=== PATIENT | male | born 1975 | race Two or more races ===

== ENCOUNTER 2019-03-20 23:49 | Emergency (ER) | payer SELFPAY ==
[~2019-03-20] VITALS: Ht 175.3 cm; Wt 127.0 kg
[2019-03-21 00:04] VITALS: BP 140/87
== END 2019-03-21 00:10 ==
LOC: ER 23:49
DX: I10 Essential (primary) hypertension (principal); F17.210 Nicotine dependence, cigarettes, uncomplicated; Z02.89 Encounter for other administrative examinations

== ENCOUNTER 2020-12-29 22:26 | Emergency (ER) | payer SELFPAY ==
[~2020-12-29] VITALS: Ht 180.3 cm; Wt 113.4 kg
[2020-12-30] MEDS ORDERED: SODIUM CHLORIDE 0.9% 1,000 ML IV ONE
[2020-12-30] MEDS ORDERED: LORazepam 2MG/ML-1ML VIAL IV ONE ×2
[2020-12-30] MEDS ORDERED: SODIUM CHLORIDE 0.9% 2,000 ML IV ONE (00:45)
[2020-12-30 01:10] VITALS: BP 138/92
== END 2020-12-30 02:11 | disposition home or self-care (01) ==
LOC: ER 22:26
DX: S02.2XXA Fracture of nasal bones, initial encounter for closed fracture (principal); E86.0 Dehydration; F17.210 Nicotine dependence, cigarettes, uncomplicated; I10 Essential (primary) hypertension; X58.XXXA Exposure to other specified factors, initial encounter; Y93.89 Activity, other specified; Y92.89 Other specified places as the place of occurrence of the external cause; Y99.8 Other external cause status
CPT/HCPCS: 36415; 70450; 70486; 82550; 96361; 96374; 99285; J2060

== ENCOUNTER 2024-07-21 09:15 | Inpatient (IN) | payer OTHER, MEDICARE, MEDICAID ==
[~2024-07-21] VITALS: Ht 180.3 cm; Wt 104.5 kg
--- NOTE | 2024-07-21 09:27 | ED.PDOC ---
History of present illness HPI Comments 49 y/o M, MANDY, with PMHx of HTN, DM, and depression presents to the ED for CC of hyperglycemia. EMS reports, patient is coming from home where he complains of hyperglycemic blood sugar reading, yesterday (07/20/24). Patient states, that he was seen at the [facility] where he was told his blood sugar read at 500 on glucometer; no medications were given. In route to ED, patient's blood sugar read at 456 on glucometer. Patient denies dysuria, dizziness, urinary frequency, back pain, or disorientation. No other symptoms or modifying factors present at this time. Time Seen by MD: 09:15 Primary Care Provider: KENIA History of present illness: Nurses Notes, Dispatcher Service Chief Notes, Medications, Allergies Allergies: Coded Allergies: Olanzapine (Verified Allergy, Unknown, 07/21/24) Information Source: Patient, Emergency Med Personnel Mode of Arrival: EMS Timing: Hours Duration: Since onset Prehospital treatment: None [place]: None History of: Diabetes Associated signs and symptoms: None Past Medical History PAST MEDICAL HISTORY: Depression, DM, HTN Surgical History: Denies all surgeries Family History Family History: Unknown Social History Smoker: Greater Than 1 Pack/Day Alcohol: Denies ETOH Use Drugs: Denies Drug Use Lives In: Home Constitutional: denies: chills, diaphoresis, fatigue, fever, malaise, sweats, weakness, others EENTM: denies: blurred vision, double vision, ear bleeding, ear discharge, ear drainage, ear pain, ear ringing, eye pain, eye redness, hearing loss, mouth pain, mouth swelling, nasal discharge, nose bleeding, nose congestion, nose pain, photophobia, tearing, throat pain, throat swelling, voice changes, others Respiratory: denies: cough, hemoptysis, orthopnea, SOB at rest, shortness of breath, SOB with excertion, stridor, wheezing, others Cardiovascular: denies: chest pain, dizzy spells, diaphoresis, Dyspnea on exertion, edema, irregular heart beat, left arm pain, lightheadedness, palpitations, PND, syncope, others Gastrointestinal: denies: abdomen distended, abdominal pain, blood streaked bowels, constipated, diarrhea, dysphagia, difficulty swallowing, hematemesis, melena, nausea, poor appetite, poor fluid intake, rectal bleeding, rectal pain, vomiting, others Genitourinary: denies: burning, dysuria, flank pain, frequency, hematuria, incontinence, penile discharge, penile sore, pain, testicle pain, testicle swelling, urgency, others Neurological: denies: dizziness, fainting, headache, left sided numbness, left sided weakness, numbness, paresthesia, pre-existing deficit, right sided numbness, right sided weakness, seizure, speech problems, tingling, tremors, weakness, others Musculoskeletal: denies: back pain, gout, joint pain, joint swelling, muscle pain, muscle stiffness, neck pain, others Integumetry: denies: bruises, change in color, change in hair/nails, dryness, laceration, lesions, lumps, rash, wounds, others Allergic/Immunocompromised: denies: Difficulty Healing, Frequent Infections, Hives, Itching, others Hematologic/Lymphatic: denies: anemia, blood clots, easy bleeding, easy bruising, swollen glands, others Endocrine: reports: excessive thirst; denies: excessive hunger, excessive sweating, excessive urination, flushing, intolerance to cold, intolerance to heat, unexplained weight gain, unexplained weight loss, others Psychiatric: denies: anxiety, bipolar disorder, depression, hopeless, panic disorder, schizophrenia, sleepless, suicidal, others All Other Systems: Reviewed and Negative Physical Exam General Appearance: Moderate Distress HEENT: Normal ENT Inspection, Pharynx Normal, TMs Normal Neck: Full Range of Motion, Non-Tender, Normal, Normal Inspection Respiratory: Chest Non-Tender, Lungs Clear, No Accessory Muscle Use, No Respiratory Distress, Normal Breath Sounds Cardiovascular: No Edema, No JVD, No Murmur, No Gallop, Normal Peripheral Pulses, Regular Rate/Rhythm Breast Exam: Deferred Gastrointestinal: No Organomegaly, Non Tender, No Pulsatile Mass, Normal Bowel Sounds, Soft Genitalia: Deferred Pelvic: Deferred Rectal: Deferred Extremities: No calf tenderness, Normal capillary refill, Normal inspection, Normal range of motion, Non-tender, No pedal edema Musculoskeletal : Apperance: Normal Neurologic: Alert, biology manager II-XII nml as Tested, Motor Weakness, Normal Affect, Normal Mood, No Sensory Deficits Cerebellar Function: Normal Reflexes: Normal Skin: Dry, Normal Color, Warm Lymphatic: No Adenopathy Was a procedure done? Was a procedure done?: No Differential Diagnosis (DM) Differential Diagnosis: Dehydration, Hyperglycemia X-Ray, Labs, Meds, VS Vital Signs Date Time Temp Pulse Resp B/P (MAP) Pulse Ox O2 Delivery O2 Flow Rate FiO2 07/21/24 11:00 105 20 126/63 (84) 96 07/21/24 10:05 80 16 98 Room Air* 0 21 07/21/24 10:05 98.1 80 16 135/79 (97) 98 98.1 07/21/24 09:31 98.9 104 16 114/86 (95) 100 98.9 Lab Test 07/21/24 13:54 07/21/24 09:31 Range/Units Urine Color Colorless Yellow Urine Clarity Clear Clear Urine pH 7.5 5.0-9.0 Urine Specific [place] 1.020 1.001-1.035 Urine Protein Negative Negative Urine Ketones Negative Negative Urine Blood Negative Negative /uL Urine Nitrite Negative Negative Urine Bilirubin Negative Negative Urine Urobilinogen Normal Negative mg/dL Urine Leukocyte Esterase Negative Negative /uL Urine RBC None seen 0 - 3 /hpf Urine Microscopic WBC < 1 0-3 /HPF Urine Squamous Epithelial Cells None seen <5 /hpf Urine Bacteria None seen None Seen /hpf Urine Glucose 4+ H Normal mg/dL White Blood Count 10.8 4.4-10.8 10^3/uL Red Blood Count 5.82 4.5-5.90 10^6/uL Hemoglobin 17.6 H 13.5-17.5 g/dL Hematocrit 50.5 41.0-53.0 % Mean Corpuscular Volume 86.8 80.0-100.0 fL Mean Corpuscular Hemoglobin 30.2 28.0-32.0 pg Mean Corpuscular Hemoglobin Concent 34.8 32.0-36.0 g/dL Red Cell Distribution Width 13.2 11.8-14.3 % Platelet Count 203 140-450 10^3/uL Mean Platelet Volume 9.6 6.9-10.8 fL Neutrophils (%) (Auto) 73.0 37.0-80.0 % Lymphocytes (%) (Auto) 19.6 10.0-50.0 % Monocytes (%) (Auto) 6.5 0.0-12.0 % Eosinophils (%) (Auto) 0.7 0.0-7.0 % Basophils (%) (Auto) 0.2 0.0-2.0 % Neutrophils # (Auto) 7.9 1.6-8.6 10 ^3/uL Lymphocytes # (Auto) 2.1 0.4-5.4 10 ^3/uL Monocytes # (Auto) 0.7 0-1.3 10 ^3/uL Eosinophils # (Auto) 0.1 0-0.8 10 ^3/uL Basophils # (Auto) 0 0-0.2 10 ^3/uL Nucleated Red Blood Cells 0.0 % Sodium Level 132 L 136-145 mmol/L Potassium Level 4.2 3.5-5.1 mmol/L Chloride Level 103 98-107 mmol/L Carbon Dioxide Level 23 20-31 mmol/L Anion Gap 6 5-15 Blood Urea Nitrogen 6 L 9-23 mg/dL Creatinine 0.99 0.700-1.30 mg/dL Glomerular Filtration Rate Calc 94 >90 mL/min BUN/Creatinine Ratio 6.1 L 10.0-20.0 Serum Glucose 423 *H 74-106 mg/dL Calcium Level 9.8 8.7-10.4 mg/dL Current Medications Medications (Trade) Dose Ordered Sig/Katharine Route Start Time Stop Time Status Last Admin Sodium Chloride 1,000 ml @ 1,000 mls/hr Q1H ONCE IV 07/21/24 09:30 07/21/24 10:29 DC 07/21/24 10:20 Insulin Human Regular (InsuLIN R) 5 units ONCE ONCE IV 07/21/24 09:30 07/21/24 09:31 DC 07/21/24 10:21 The patient's CBC is within normal limits The chemistry panel is within normal limits The patient was glucose is elevated at 423 The patient was given a 1 L bolus of normal saline The patient was given insulin 5 units IV push for the hyperglycemia At this time, the patient was being admitted to the hospitalist The patient's blood sugar seems to be somewhat uncontrolled so we feel that the patient needs to be admitted at this time. The patient understands and agrees with the management Time of 1ST Reevaluation: 09:45 Reevaluation 1ST: Unchanged Patient Education/Counseling: Diagnosis, Treatment, Prognosis Family Education/Counseling: No Family Present Departure 1 Departure Time of Disposition: 14:21 Impression: Primary Impression: Generalized weakness Additional Impression: Uncontrolled diabetes mellitus Qualified Codes: E11.65 - Type 2 diabetes mellitus with hyperglycemia Disposition: 09 ADMITTED INPATIENT Admit to: Med Surg Condition: Fair Critical Care Note Critical Care Time?: No Stability Stability form required: Yes Unstable for transfer: ED Physician Assesment (Clinical assesment) Heart Score Heart Score: Heart Score Response (Comments) Value History N/A 0 EKG N/A 0 Age N/A 0 Risk Factors N/A 0 Troponin N/A 0 Total 0 I personally scribed for LIBBY VILLARREAL MD ([email or web address]) on 07/21/24 at 09:27. Electronically submitted by Luiza Del Rio ([email or web address]). I personally scribed for LIBBY VILLARREAL MD ([email or web address]) on 07/21/24 at 09:36. Electronically submitted by Luiza Del Rio ([email or web address]). LIBBY VILLARREAL MD July 21, 2024 09:27
[2024-07-21 09:58] LABS: Basophils # (auto) 0 10 ^3/uL (0-0.2); Basophils % (auto) 0.2 % (0.0-2.0); Eosinophils # (auto) 0.1 10 ^3/uL (0-0.8); Eosinophils % (auto) 0.7 % (0.0-7.0); Hematocrit 50.5 % (41.0-53.0); Hemoglobin 17.6 g/dL (13.5-17.5); Lymphocytes # (auto) 2.1 10 ^3/uL (0.4-5.4); Lymphocytes % (auto) 19.6 % (10.0-50.0); Mean Corpuscular Hemoglobin 30.2 pg (28.0-32.0); Mean Corpuscular Hgb Conc. 34.8 g/dL (32.0-36.0); Mean Corpuscular Volume 86.8 fL (80.0-100.0); Monocytes # (auto) 0.7 10 ^3/uL (0-1.3); Monocytes % (auto) 6.5 % (0.0-12.0); Neutrophils # (auto) 7.9 10 ^3/uL (1.6-8.6); Platelet Count (auto) 203 10^3/uL (140-450); Red Blood Cells 5.82 10^6/uL (4.5-5.90); Red Cell Distribution Width 13.2 % (11.8-14.3); White Blood Cell 10.8 10^3/uL (4.4-10.8)
[2024-07-21 10:03] LABS: Chloride 103 mmol/L (98-107); Potassium 4.2 mmol/L (3.5-5.1)
[2024-07-21 10:04] LABS: Anion Gap 6 (5-15); Calcium 9.8 mg/dL (8.7-10.4); Carbon Dioxide 23 mmol/L (20-31); Sodium 132 mmol/L (136-145)
[2024-07-21 10:05] VITALS: PULSE 80; RESP 16; O2SAT 98
[2024-07-21 10:09] LABS: BUN/Creatinine Ratio 6.1 (10.0-20.0); Blood Urea Nitrogen 6 mg/dL (9-23)
[2024-07-21 10:12] LABS: Glucose 423 mg/dL (74-106)
[2024-07-21] MEDS: SODIUM CHLORIDE 0.9% 1,000 ML IV ONE (10:20)
[2024-07-21] MEDS: InsuLIN REG 1unit/0.01ml Soln (100units/ml) IV ONE (10:21)
[2024-07-21 14:03] LABS: Urine Bacteria None Seen /hpf (None Seen)
[2024-07-21 14:12] LABS: Urine Blood Negative /uL (Negative); Urine Clarity Clear (Clear); Urine Color Colorless (Yellow); Urine Protein, UAD Negative (Negative); Urine Squamous Epithelial Cell None Seen /hpf (<5); Urine Urobilinogen Normal (Negative); Urine WBC < 1 /HPF (0-3); Urine pH 7.5 (5.0-9.0)
[2024-07-21] MEDS ORDERED: DEXTROSE (50%) 50ML SYRG IV PRN (16:45)
[2024-07-21] MEDS ORDERED: ONDANSETRON HCL 4 MG/2 ML VIAL IV PRN (16:45)
[2024-07-21] MEDS ORDERED: ACETAMINOPHEN 325 MG TAB PO PRN (16:45)
--- NOTE | 2024-07-21 16:54 | DVHHP2 ---
History of Present Illness Reason for Visit: Elevated blood sugar History of Present Illness Jordan Owens is a 49-year-old male with past medical history of hypertension, diabetes type 2, depression, neck surgery, and tonsillectomy who presents to the ED with elevated blood sugar. Patient reports that he went to the [facility] and they diverted him here and did not give him any insulin while he was there. Patient reports that he does not know how long he has had the high blood sugar for. He also endorses that he smokes half a pack of cigars a day. Patient also reports that he does not take medications for his blood sugar. He reports that he lives at home with his mom. Upon exam poor dentition noted. Patient denies illicit drug use and alcohol use. Patient denies any chest pain, shortness of breath, fever, chills, lightheadedness, weakness, dizziness, abdominal pain, nausea, vomiting, diarrhea, recent sick contacts, recent trauma or injury, or recent travels. Patient reports that he takes Cogentin 150 mg daily and lithium 300 mg daily. Clarified with pharmacy and no dosage Cogentin 150 mg. Cardiovascular: HTN Psych: Depression Endocrine: Diabetes Past Surgical History: Other (Neck surgery), Tonsillectomy Family History: None Smoke: <1 pack per day ALCOHOL: none Drugs: None Lives: with Family Domestic Violence: Neg Review of Systems Other Elevated blood sugar Allergies: Coded Allergies: Olanzapine (Verified Allergy, Unknown, 07/21/24) Medications Current Medications Medications Dose Ordered Sig/Katharine Route Start Time Stop Time Status Last Admin Dose Admin Diagnostic Test (Pha) 1 strip ACHS 07/21/24 17:00 UNV Insulin Human Regular HS SC 07/21/24 22:00 UNV Insulin Human Regular AC SC 07/21/24 17:00 UNV Dextrose 50 ml UD PRN IV 07/21/24 16:45 UNV Insulin Glargine 10 units BID@1000,2200 SC 07/21/24 22:00 UNV Ondansetron HCl 4 mg Q4HP PRN IV 07/21/24 16:45 UNV Acetaminophen 650 mg Q6HP PRN PO 07/21/24 16:45 UNV Exam Vital Signs Vital Signs Date Time Temp Pulse Resp B/P (MAP) Pulse Ox O2 Delivery O2 Flow Rate FiO2 07/21/24 14:00 70 13 121/75 (90) 96 07/21/24 10:05 Room Air* 0 21 07/21/24 10:05 98.1 98.1 General Appearance: Alert, Oriented X3, Cooperative, No acute distress HEENT: Atraumatic, PERRLA, EOMI Respiratory: Clear to auscultation, Normal air movement Cardiovascular: Normal S1, Normal S2, No murmurs Abdominal: Normal bowel sounds, Soft, No tenderness, No hepatospenomegaly, No masses Extremities: No clubbing, No cyanosis Neuro: Normal speech, Strength at 5/5 X4 ext, Normal tone, Sensation intact Psych/Mental Status: Mental status NL, Mood NL Labs/Xrays Labs Test 07/21/24 13:54 07/21/24 09:31 Range/Units Urine Color Colorless Yellow Urine Clarity Clear Clear Urine pH 7.5 5.0-9.0 Urine Specific [place] 1.020 1.001-1.035 Urine Protein Negative Negative Urine Ketones Negative Negative Urine Blood Negative Negative /uL Urine Nitrite Negative Negative Urine Bilirubin Negative Negative Urine Urobilinogen Normal Negative mg/dL Urine Leukocyte Esterase Negative Negative /uL Urine RBC None seen 0 - 3 /hpf Urine Microscopic WBC < 1 0-3 /HPF Urine Squamous Epithelial Cells None seen <5 /hpf Urine Bacteria None seen None Seen /hpf Urine Glucose 4+ H Normal mg/dL White Blood Count 10.8 4.4-10.8 10^3/uL Red Blood Count 5.82 4.5-5.90 10^6/uL Hemoglobin 17.6 H 13.5-17.5 g/dL Hematocrit 50.5 41.0-53.0 % Mean Corpuscular Volume 86.8 80.0-100.0 fL Mean Corpuscular Hemoglobin 30.2 28.0-32.0 pg Mean Corpuscular Hemoglobin Concent 34.8 32.0-36.0 g/dL Red Cell Distribution Width 13.2 11.8-14.3 % Platelet Count 203 140-450 10^3/uL Mean Platelet Volume 9.6 6.9-10.8 fL Neutrophils (%) (Auto) 73.0 37.0-80.0 % Lymphocytes (%) (Auto) 19.6 10.0-50.0 % Monocytes (%) (Auto) 6.5 0.0-12.0 % Eosinophils (%) (Auto) 0.7 0.0-7.0 % Basophils (%) (Auto) 0.2 0.0-2.0 % Neutrophils # (Auto) 7.9 1.6-8.6 10 ^3/uL Lymphocytes # (Auto) 2.1 0.4-5.4 10 ^3/uL Monocytes # (Auto) 0.7 0-1.3 10 ^3/uL Eosinophils # (Auto) 0.1 0-0.8 10 ^3/uL Basophils # (Auto) 0 0-0.2 10 ^3/uL Nucleated Red Blood Cells 0.0 % Sodium Level 132 L 136-145 mmol/L Potassium Level 4.2 3.5-5.1 mmol/L Chloride Level 103 98-107 mmol/L Carbon Dioxide Level 23 20-31 mmol/L Anion Gap 6 5-15 Blood Urea Nitrogen 6 L 9-23 mg/dL Creatinine 0.99 0.700-1.30 mg/dL Glomerular Filtration Rate Calc 94 >90 mL/min BUN/Creatinine Ratio 6.1 L 10.0-20.0 Serum Glucose 423 *H 74-106 mg/dL Calcium Level 9.8 8.7-10.4 mg/dL Assessment/Plan Assessment/Plan Assessment Diabetes type 2 uncontrolled Hyponatremia Cigar use Obesity History of hypertension History of depression History of neck surgery History of tonsillectomy Plan Admit to [facility] Hemoglobin A1c ISS and Accu-Cheks Lantus added Diet Antiemetics Diabetic referral Home medications reconciled DVT prophylaxis-not indicated patient ambulating PUD prophylaxis-not indicated no history of GERD or GI bleed Discussed plan of care with patient and nurse Counseled patient on cessation of cigar use Counseled patient on lifestyle modifications, diet, and exercise Plan discussed with: Patient My Orders Orders - WICHO KAYE [employer]TER Procedure Category Date Status Time Hemoglobin A1c LAB 07/21/24 In Process 16:35 Glucose Blood PHA 07/21/24 Logged (Accu-Chek Comfort 17:00 Insulin R (Human) PHA 07/21/24 Logged (Insulin R) 22:00 Insulin R (Human) PHA 07/21/24 Logged (Insulin R) 17:00 Dextrose 50% Syringe PHA 07/21/24 Logged 16:45 Insulin Lantus PHA 07/21/24 Logged (Glargine) (Lantus) 22:00 Admit ADMIT 07/21/24 Transmitted 16:35 Allergies DONNA 07/21/24 In Process 16:35 Code Status CODE 07/21/24 Transmitted 16:35 Ondansetron Hcl PHA 07/21/24 Logged (Zofran) 16:45 Complete Blood Count LAB 07/22/24 Verified 04:00 Comprehensive LAB 07/22/24 Verified Metabolic Panel 04:00 Cardiac DIET 07/21/24 Transmitted Diet-2gna,Lofat,Lochol Dinner Acetaminophen Tablet PHA 07/21/24 Logged (Tylenol Tablet) 16:45 *Rn Animal Assisted Therapist REFER 07/21/24 Transmitted Referral 16:35 [place] Carbonate PHA 07/21/24 Verified 16:45 [place] ([place]) LAB 07/21/24 Verified 16:37 Date of Service: July 21, 2024 Billing Provider: WICHO KAYE Common Visit Codes: [id number] INP/OBS CARE (HIGH) WICHO KAYE July 21, 2024 16:54
--- NOTE | 2024-07-21 17:20 | DVH ---
CHEST RADIOGRAPH Indication: sinus tach Technique: Single frontal view of the chest was obtained COMPARISON: None FINDINGS: Lines and Tubes: None Lungs: Patchy bilateral lower lobe airspace opacities. Pleura: No effusion. No pneumothorax. Cardiomediastinal contours: Unremarkable Bones: Unremarkable IMPRESSION: Patchy bilateral lower lobe airspace opacities.
[2024-07-21] MEDS: LITHIUM CARBONATE 300 MG TAB PO SCH (17:34)
[2024-07-21] MEDS: ACCU-CHEK COMFORT CURVE STRIP VI SCH (17:34)
[2024-07-21] MEDS: InsuLIN REG 1unit/0.01ml Soln (100units/ml) SC SCH ×2 (17:38→22:10)
[2024-07-21 18:58] VITALS: BP 131/86; PULSE 92; RESP 18; TEMP 97.5; O2SAT 95
[2024-07-21 19:04] VITALS: BP 131/86; PULSE 87; PULSE 92; RESP 18; TEMP 97.5; O2SAT 95; O2SAT 96
[2024-07-21 21:00] VITALS: BP 115/70; PULSE 76; RESP 18; TEMP 98.1; O2SAT 95
[2024-07-21] MEDS: INSULIN LANTUS (GLARGINE) 1 /0.01ml (100units/ml) SC SCH (22:11)
[2024-07-22 01:01] VITALS: BP 132/81; PULSE 81; RESP 19; TEMP 97.5; O2SAT 95
[2024-07-22 02:20] VITALS: BP 129/86; PULSE 83; RESP 18; TEMP 98; O2SAT 98
[2024-07-22 05:00] VITALS: BP 121/69; PULSE 85; RESP 19; TEMP 98.7; O2SAT 94
[2024-07-22 07:57] LABS: Basophils # (auto) 0 10 ^3/uL (0-0.2); Basophils % (auto) 0.2 % (0.0-2.0); Eosinophils # (auto) 0.1 10 ^3/uL (0-0.8); Eosinophils % (auto) 0.7 % (0.0-7.0); Hematocrit 48.4 % (41.0-53.0); Lymphocytes % (auto) 22.9 % (10.0-50.0); Mean Corpuscular Hemoglobin 30.5 pg (28.0-32.0); Mean Corpuscular Volume 86.9 fL (80.0-100.0); Monocytes # (auto) 0.6 10 ^3/uL (0-1.3); Neutrophils % (auto) 69.2 % (37.0-80.0); Nucleated Red Blood Cells % 0.1 %; Platelet Count (auto) 183 10^3/uL (140-450); Red Blood Cells 5.57 10^6/uL (4.5-5.90); Red Cell Distribution Width 13.3 % (11.8-14.3); White Blood Cell 8.6 10^3/uL (4.4-10.8)
[2024-07-22 08:10] LABS: Alanine Aminotransferase 25 U/L (7-40); Alkaline Phosphatase 88 U/L (46-116); Anion Gap 9 (5-15); BUN/Creatinine Ratio 7.7 (10.0-20.0); Calcium 9.4 mg/dL (8.7-10.4); Carbon Dioxide 23 mmol/L (20-31); Chloride 103 mmol/L (98-107); Potassium 3.6 mmol/L (3.5-5.1); Total Protein 6.6 g/dL (5.7-8.2)
[2024-07-22 08:11] LABS: Aspartate Aminotransferase 19 U/L (13-40); Bilirubin, Total 0.9 mg/dL (0.2-1.0)
[2024-07-22 08:13] LABS: Blood Urea Nitrogen 7 mg/dL (9-23); Glucose 262 mg/dL (74-106); Sodium 135 mmol/L (136-145)
[2024-07-22 08:55] VITALS: BP 112/63; PULSE 83; RESP 17; TEMP 98.3; O2SAT 96
[2024-07-22] MEDS ORDERED: METF-372 PO (12:30)
[2024-07-22 13:05] VITALS: BP 124/70; PULSE 82; RESP 17; TEMP 98.8; O2SAT 96
--- NOTE | 2024-07-22 16:35 | DVHDS2 ---
Discharge Summary Date of Admission July 21, 2024 at 16:35 Date of Discharge: July 22, 2024 Labs/Diagnostic Data: Laboratory Results Test 07/22/24 12:07 07/22/24 07:16 07/21/24 18:07 07/21/24 13:54 POC Glucose 288 mg/dl (70-106) White Blood Count 8.6 10^3/uL (4.4-10.8) Red Blood Count 5.57 10^6/uL (4.5-5.90) Hemoglobin 17.0 g/dL (13.5-17.5) Hematocrit 48.4 % (41.0-53.0) Mean Corpuscular Volume 86.9 fL (80.0-100.0) Mean Corpuscular Hemoglobin 30.5 pg (28.0-32.0) Mean Corpuscular Hemoglobin Concent 35.0 g/dL (32.0-36.0) Red Cell Distribution Width 13.3 % (11.8-14.3) Platelet Count 183 10^3/uL (140-450) Mean Platelet Volume 9.7 fL (6.9-10.8) Neutrophils (%) (Auto) 69.2 % (37.0-80.0) Lymphocytes (%) (Auto) 22.9 % (10.0-50.0) Monocytes (%) (Auto) 7.0 % (0.0-12.0) Eosinophils (%) (Auto) 0.7 % (0.0-7.0) Basophils (%) (Auto) 0.2 % (0.0-2.0) Neutrophils # (Auto) 6.0 10 ^3/uL (1.6-8.6) Lymphocytes # (Auto) 2.0 10 ^3/uL (0.4-5.4) Monocytes # (Auto) 0.6 10 ^3/uL (0-1.3) Eosinophils # (Auto) 0.1 10 ^3/uL (0-0.8) Basophils # (Auto) 0 10 ^3/uL (0-0.2) Nucleated Red Blood Cells 0.1 % Sodium Level 135 mmol/L (136-145) Potassium Level 3.6 mmol/L (3.5-5.1) Chloride Level 103 mmol/L (98-107) Carbon Dioxide Level 23 mmol/L (20-31) Anion Gap 9 (5-15) Blood Urea Nitrogen 7 mg/dL (9-23) Creatinine 0.91 mg/dL (0.700-1.30) Glomerular Filtration Rate Calc 104 mL/min (>90) BUN/Creatinine Ratio 7.7 (10.0-20.0) Serum Glucose 262 mg/dL (74-106) Calcium Level 9.4 mg/dL (8.7-10.4) Total Bilirubin 0.9 mg/dL (0.2-1.0) Aspartate Amino Transferase (AST) 19 U/L (13-40) Alanine Aminotransferase (ALT) 25 U/L (7-40) Alkaline Phosphatase 88 U/L (46-116) Total Protein 6.6 g/dL (5.7-8.2) Albumin 4.0 g/dL (3.2-4.8) Urine Color Colorless (Yellow) Urine Clarity Clear (Clear) Urine pH 7.5 (5.0-9.0) Urine Specific [place] 1.020 (1.001-1.035) Urine Protein Negative (Negative) Urine Ketones Negative (Negative) Urine Blood Negative /uL (Negative) Urine Nitrite Negative (Negative) Urine Bilirubin Negative (Negative) Urine Urobilinogen Normal mg/dL (Negative) Urine Leukocyte Esterase Negative /uL (Negative) Urine RBC None seen /hpf (0 - 3) Urine Microscopic WBC < 1 /HPF (0-3) Urine Squamous Epithelial Cells None seen /hpf (<5) Urine Bacteria None seen /hpf (None Seen) Urine Glucose 4+ mg/dL (Normal) Test 07/21/24 09:31 Hemoglobin A1c 12.3 % A1C (<5.7) Other Laboratory Tests 07/22/24 07:16 Brief Hx & Hospital Course: Jordan Owens is a 49-year-old male with past medical history of hypertension, diabetes type 2, depression, neck surgery, and tonsillectomy who presents to the ED with elevated blood sugar. Patient reports that he went to the [place] and they diverted him here and did not give him any insulin while he was there. Patient reports that he does not know how long he has had the high blood sugar for. He also endorses that he smokes half a pack of cigars a day. Patient also reports that he does not take medications for his blood sugar. He reports that he lives at home with his mom. Upon exam poor dentition noted. Patient denies illicit drug use and alcohol use. Patient denies any chest pain, shortness of breath, fever, chills, lightheadedness, weakness, dizziness, abdominal pain, nausea, vomiting, diarrhea, recent sick contacts, recent trauma or injury, or recent travels. A1C 12 responded to short acting insulin discharged on metformin Condition at Discharge: Good Final Diagnosis/Problems List uncontrolled diabetes type 2 Discharge Disposition: Home Discharge Instruct/Medications Diet: Regular Activity: No Restrictions, As Tolerated Follow Up/Referral: PCP in 7 days Medications: metformin Discharge Statement: "Patient was advised to return to the ER or call 911 if any headaches, dizziness, shortness of breath, chest pain, abdominal pain, bleeding, fevers, or worsening of medical condition. Patient was counseled about treatment plan, medications, possible side effects, patientverbalized understanding. All questions were answered to the best of my ability. This discharge took greater then 30 minutes in planning, reviewing documentation, counseling the patient, and discussing with other team members." ASSESSMENT ASSESSMENT Assessment uncontrolled diabetes type 2 Date of Service: July 22, 2024 Billing Provider: RAMBO GE MD Common Visit Codes: 93497-PFT/OBS DISCH DAY >30min RAMBO GE MD July 22, 2024 16:35
[2024-07-22 17:57] VITALS: TEMP 37.1
== END 2024-07-23 00:30 | disposition home or self-care (01) | DRG 638 ==
LOC: EDBD 09:15 → ER 09:15 → OVERFLOW 16:35 → CENTRAL 07-22 02:05
PROVIDERS: ADMIT Hospitalist
DX: E11.65 Type 2 diabetes mellitus with hyperglycemia (principal); E87.1 Hypo-osmolality and hyponatremia; E66.9 Obesity, unspecified; I10 Essential (primary) hypertension; F32.A Depression, unspecified; Z68.32 Body mass index [BMI] 32.0-32.9, adult; F17.210 Nicotine dependence, cigarettes, uncomplicated; Z88.8 Allergy status to other drugs, medicaments and biological substances
CPT/HCPCS: 36415; 71045; 80048; 80053; 80178; 81001; 82962; 83036; 85025; G0378; J1815